=== PATIENT | male | born 1990 | race Caucasian/White ===

== ENCOUNTER 2019-11-18 16:55 | Emergency (ER) | payer OTHER ==
--- NOTE | 2019-11-18 17:56 | CR ---
[id number] RAD/RAD Chest PA And Lateral EXAM: FRONTAL AND LATERAL CHEST INDICATION: Cough and fever for 3 days. COMPARISON: None. DISCUSSION: The heart and lungs are normal in appearance. IMPRESSION: 1. Negative exam. Marciano Gan MD 11/18/19 0328 Thank you for allowing us to participate in the care of your patient.
--- NOTE | 2019-11-18 18:03 | EDM.PDOC ---
ED HPI GENERAL MEDICAL PROBLEM - General Chief Complaint: Fever Stated Complaint: FEVER,, CHILLS, RUNNY NOSE Time Seen by Provider: 11/18/19 17:02 Source of Information: Reports: Patient History Limitations: Reports: No Limitations - History of Present Illness INITIAL COMMENTS - FREE TEXT/NARRATIVE: Pt. presents to ER with complaints of myalgias, fever, chills, fatigue, runny nose, and sore throat. He complains of a headache. States that he can feel some post nasal drip in the back of his throat. Denies any cough or chest congestion. His coworker who he has been spending a lot of time had similar symptoms and has improved. States that he has been sick since . States that he has been taking tylenol and ibuprofen. T max was 102 at home. Denies any rash. No nausea, vomiting, or diarrhea. Primary complaint today is that of fatigue. Denies any recent out of country travel. Denies any chest pain or shortness of breath. Onset: Today Onset Date: 11/18/19 Location: Reports: Face, Generalized Quality: Reports: Ache Associated Symptoms: Reports: Fever/Chills, Malaise. Denies: Confusion, Chest Pain, Cough, cough w sputum, Diaphoresis, Nausea/Vomiting, Shortness of Breath, Weakness Treatments COMPUTATIONAL LINGUIST: Reports: Acetaminophen, NSAIDS Head Pain Score (Numeric/FACES): 3 - Related Data Allergies Allergy/AdvReac Type Severity Reaction Status Date / Time No Known Allergies Allergy Verified 11/18/19 17:05 Home Meds: Home Meds . [No Known Home Meds] 11/18/19 [History] Past Medical History Musculoskeletal History: Reports: Other (See Below) Other Musculoskeletal History: knee, labrum repair - Past Surgical History HEENT Surgical History: Reports: Other (See Below) Other HEENT Surgeries/Procedures: tympanic surgery Social & Family History - Tobacco Use Smoking Status *Q: Never Smoker - Recreational Drug Use Recreational Drug Use: No ED ROS GENERAL - Review of Systems Review Of Systems: See Below Constitutional: Reports: No Symptoms HEENT: Reports: No Symptoms Respiratory: Reports: No Symptoms Cardiovascular: Reports: No Symptoms Endocrine: Reports: No Symptoms GI/Abdominal: Reports: No Symptoms : Reports: No Symptoms Musculoskeletal: Reports: Joint Pain, Muscle Stiffness Skin: Reports: No Symptoms Neurological: Reports: No Symptoms Psychiatric: Reports: No Symptoms Hematologic/Lymphatic: Reports: No Symptoms Immunologic: Reports: No Symptoms ED EXAM, GENERAL - Physical Exam Exam: See Below Exam Limited By: No Limitations General Appearance: Alert, WD/WN, No Apparent Distress Eye Exam: Bilateral Eye: EOMI, PERRL Ears: Normal External Exam, Normal Canal, Hearing Grossly Normal, Normal TMs Ear Exam: Bilateral Ear: Auricle Normal, Canal Normal, TM normal Nose: Normal Inspection, Normal Mucosa, No Blood, Nasal Drainage, Clear Rhinorrhea Throat/Mouth: Normal Inspection, Normal Lips, Normal Teeth, Normal Gums, Normal Voice, No Airway Compromise, Inflammation Head: Atraumatic, Normocephalic Neck: Normal Inspection, Supple, Non-Tender, Full Range of Motion Respiratory/Chest: No Respiratory Distress, Lungs Clear, Normal Breath Sounds, No Accessory Muscle Use, Chest Non-Tender Cardiovascular: Normal Peripheral Pulses, Regular Rate, Rhythm, No Edema, No Gallop, No JVD, No Murmur, No Rub Peripheral Pulses: 4+: Radial (L) GI/Abdominal: Soft, Non-Tender, No Organomegaly, No Distention, No Mass (Male) Exam: Deferred Rectal (Males) Exam: Deferred Back Exam: Normal Inspection, Full Range of Motion Extremities: Normal Inspection, Normal Range of Motion, Non-Tender, No Pedal Edema, Normal Capillary Refill Neurological: Alert, Oriented, CN II-XII Intact, Normal Cognition, Normal Gait, Normal Reflexes, No Motor/Sensory Deficits Psychiatric: Normal Affect, Normal Mood Skin Exam: Warm, Dry, Intact, Normal Color, No Rash Lymphatic: No Adenopathy Course - Vital Signs Last Recorded V/S: Last Vital Signs Temp 36.0 C L 11/18/19 17:02 Pulse 89 11/18/19 17:02 Resp 16 11/18/19 17:02 BP 115/70 11/18/19 17:02 Pulse Ox 98 11/18/19 17:02 Departure - Departure Time of Disposition: 19:05 Disposition: Home, Self-Care 01 Clinical Impression: Influenza B - Discharge Information Instructions: Influenza, Adult, [id number] Referrals: PCP,None [Primary Care Provider] - Forms: ED Department Discharge Additional Instructions: Influenza B Off work until 48 hours after last fever. Tylenol and ibuprofen as needed for fever/discomfort. Return to ER if trouble breathing Sepsis Event Note - Evaluation Sepsis Screening Result: No Definite Risk - Focused Exam Date Exam was Performed: 11/19/19 Time Exam was Performed: 22:24 - Assessment/Plan Plan: Influenza B Off work until 48 hours after last fever. Tylenol and ibuprofen as needed for fever/discomfort. Return to ER if trouble breathing
== END 2019-11-18 19:05 | disposition home or self-care (01) ==
LOC: VM.ED 16:55
DX: J10.1 Influenza due to other identified influenza virus with other respiratory manifestations (principal)
CPT/HCPCS: 71046; 87081; 87804; 87804-59; 87880-QW; 99283-25